=== PATIENT | male | born 1995 | race African-American/Black ===

== ENCOUNTER 2017-07-08 17:35 | Emergency (ER) | payer SELFPAY ==
[~2017-07-08] VITALS: Ht 165.1 cm; Wt 62.0 kg
[2017-07-08 19:17] VITALS: BP 120/73
== END 2017-07-08 22:22 | disposition left against medical advice (07) ==
LOC: ER 20:44
DX: Z53.21 Procedure and treatment not carried out due to patient leaving prior to being seen by health care provider (principal)